=== PATIENT | female | born 1975 | race Caucasian/White ===

== ENCOUNTER 2018-08-27 00:05 | Emergency (ER) | payer OTHER ==
[~2018-08-27] VITALS: Ht 167.6 cm; Wt 97.5 kg
[~2018-08-27 00:05] MED LIST: NOHOMEMEDICATIONS; NORCO 5-325 TA1 EACH PO
[2018-08-27] MEDS ORDERED: NORFLEX100 MG PO (01:47)
== END 2018-08-27 02:26 | disposition home or self-care (01) ==
LOC: ER 00:05
DX: S80.12XA Contusion of left lower leg, initial encounter (principal); F41.0 Panic disorder [episodic paroxysmal anxiety]; F17.210 Nicotine dependence, cigarettes, uncomplicated; Z98.890 Other specified postprocedural states; W22.8XXA Striking against or struck by other objects, initial encounter; Y93.89 Activity, other specified; Y92.89 Other specified places as the place of occurrence of the external cause; Y99.8 Other external cause status

== ENCOUNTER 2018-11-13 21:10 | Emergency (ER) | payer OTHER ==
[~2018-11-13] VITALS: Ht 160 cm; Wt 95.3 kg
[~2018-11-13 21:10] MED LIST changes: +NORFLEX100 MG PO
[2018-11-13] MEDS ORDERED: DECADRON4 MG PO (23:18)
[2018-11-13] MEDS ORDERED: VENTOLIN HFA 1818 GM INH (23:18)
[2018-11-13] MEDS ORDERED: MUCINEX DM ER1 EACH PO (23:18)
[2018-11-13 23:54] VITALS: BP 175/104
== END 2018-11-13 23:56 | disposition home or self-care (01) ==
LOC: ER 21:10
DX: J20.8 Acute bronchitis due to other specified organisms (principal); B97.89 Other viral agents as the cause of diseases classified elsewhere; I10 Essential (primary) hypertension; Z98.890 Other specified postprocedural states; F17.210 Nicotine dependence, cigarettes, uncomplicated